=== PATIENT | male | born 1960 ===

== ENCOUNTER 2017-01-26 15:21 | Emergency (ER) | payer OTHER ==
[2017-01-26 15:27] VITALS: BMI 26.4
[2017-01-26 15:29] VITALS: BP 122/85; PULSE 78; RESP 16; TEMP 98; O2SAT 100
[2017-01-26] MEDS ORDERED: Sodium Chloride 0.9% 1,000 ML IV STA (15:51)
--- NOTE | 2017-01-26 15:54 | ED PDOC ---
Syncope/Near Syncope/Dizziness Time Seen by Provider: 01/26/17 15:42 Chief Complaint (Nursing): Dizziness/Lightheaded History Per: Patient Onset/Duration Of Symptoms: Days (1) Current Symptoms Are (Timing): Still Present Seizure Or Post-ictal Symptoms: None Additional Complaint(s): Weakness/lightheadedness and mild tremors this AM. Admits to ETOH consumption last night. Drinks daily. No seizures or headache. No vomiting. Past Medical History Vital Signs: Last Vital Signs Temp 98 F 01/26/17 15:28 Pulse 78 01/26/17 15:28 Resp 16 01/26/17 15:28 BP 122/85 01/26/17 15:28 Pulse Ox 100 01/26/17 15:28 - Medical History PMH: No Chronic Diseases - Family History Family History: States: Unknown Family Hx - Home Medications Home Medications: Ambulatory Orders Medication Instructions Recorded chlordiazePOXIDE [Chlordiazepoxide 25 mg PO Q8 #10 cap 01/26/17 HCl] - Allergies Allergies/Adverse Reactions: Allergies Allergy/AdvReac Type Severity Reaction Status Date / Time No Known Allergies Allergy Verified 01/26/17 15:30 Review of Systems ROS Statement: Except As Marked, All Systems Reviewed And Found Negative Constitutional: Positive for: Weakness Neurological: Positive for: Other (tremors) Physical Exam - Reviewed Nursing Documentation Reviewed: Yes Vital Signs Reviewed: Yes - Physical Exam Appears: Positive for: Non-toxic, No Acute Distress Head Exam: Positive for: ATRAUMATIC, NORMAL INSPECTION, NORMOCEPHALIC Skin: Positive for: Normal Color, Warm, DRY Eye Exam: Positive for: EOMI, Normal appearance, PERRL ENT: Positive for: Normal ENT Inspection Neck: Positive for: Normal, Painless ROM Cardiovascular/Chest: Positive for: Regular Rate, Rhythm Respiratory: Positive for: CNT, Normal Breath Sounds Gastrointestinal/Abdominal: Positive for: Normal Exam, Bowel Sounds, Soft Back: Positive for: Normal Inspection Extremity: Positive for: Normal ROM Neurologic/Psych: Positive for: Alert, Oriented, Other (Mild tremors upper ext bilat.). Negative for: Motor/Sensory Deficits - Laboratory Results Result Diagrams: 01/26/17 16:15 01/26/17 16:15 - ECG O2 Sat by Pulse Oximetry: 100 Disposition - Clinical Impression Clinical Impression: Alcohol withdrawal - Patient ED Disposition Is Patient to be Admitted: No Counseled Patient/Family Regarding: Studies Performed, Diagnosis, Need For Followup, Rx Given - Disposition Referrals: [facility] [Outside] Disposition: Routine/Home Disposition Time: 17:55 Condition: FAIR Prescriptions: chlordiazePOXIDE [Chlordiazepoxide HCl] 25 mg PO Q8 #10 cap Instructions: Alcohol Withdrawal (ED) Forms: [employer] (Kiswahili)
[2017-01-26 16:41] LABS: BASO % 0.5 % (0.0-2.0); EOS # 0.1 K/uL (0.0-0.7); HEMATOCRIT 43.8 % (35.0-51.0); LYMPH # 0.6 K/uL (1.0-4.3); LYMPH % 13.5 % (20.0-40.0); MEAN CELL VOLUME 95.7 fl (80.0-94.0); MEAN CORPUSCULAR HEMOGLOBIN 32.9 pg (27.0-31.0); MEAN CORPUSCULAR HGB CONC 34.4 g/dL (33.0-37.0); MEAN PLATELET VOLUME 7.2 fl (7.2-11.7); MONO # 0.4 K/uL (0.0-0.8); MONO % 7.9 % (0.0-10.0); NEUT # 3.4 K/uL (1.8-7.0); NEUT % 76.1 % (50.0-75.0); NRBC % 0.1 % (0.0-0.0); RED CELL DISTRIBUTION WIDTH 12.7 % (11.5-14.5); WHITE BLOOD COUNT 4.5 K/uL (4.8-10.8)
[2017-01-26 16:47] LABS: SODIUM 139 mmol/l (132-148)
[2017-01-26 16:50] LABS: ALB/GLOB RATIO 1.4 (1.0-2.1); ALCOHOL SERUM < 10 mg/dl (0-10); ALKALINE PHOSPHATASE 97 U/L (38-126); ALT/SGPT 52 U/L (21-72); AST/SGOT 36 U/L (17-59); BILIRUBIN,TOTAL 0.5 mg/dl (0.2-1.3); BLOOD UREA NITROGEN 10 mg/dl (9-20); CALCIUM 8.9 mg/dL (8.4-10.2); CARBON DIOXIDE 28 mmol/L (22-30); CHLORIDE 101 mmol/L (98-107); GFR AFRICAN-AMERICAN > 60; GLUCOSE,RANDOM 123 mg/dL (75-110); POTASSIUM 4.6 MMOL/L (3.6-5.0); TOTAL PROTEIN 7.6 G/DL (6.3-8.2)
== END 2017-01-26 18:05 | disposition home or self-care (01) ==
LOC: H.ER 15:21
DX: F10.239 Alcohol dependence with withdrawal, unspecified (principal)
CPT/HCPCS: 80053; 80320; 85025; 99284; J7040